=== PATIENT | female | born 1955 | race Caucasian/White ===

== ENCOUNTER 2016-05-27 05:23 | Inpatient (IN) | payer BC ==
[2016-05-27] VITALS (14 sets, daily range): BP systolic 100–136; BP diastolic 58–79
[~2016-05-27] VITALS: Ht 167.6 cm; Wt 95.3 kg
[2016-05-27] MEDS ORDERED: LOTREL 10-20 M1 EACH ORAL (06:12)
[2016-05-27] MEDS ORDERED: ceFAZolin 1gm/50ml Premix 50 ML IV ONE (07:00)
[2016-05-27] MEDS ORDERED: Bacitracin 50000 Units Vial ONE (07:11)
[2016-05-27] MEDS ORDERED: Bupivacaine w/Epi 0.25% 30ml Vial INJ ONE (07:11)
[2016-05-27] MEDS ORDERED: Surgicel 4in x 8in TOPIC ONE (07:11)
[2016-05-27] MEDS: ProvayBlue 5mg/ml 10ml amp INJ ONE ×2 (07:15→08:35)
[2016-05-27] MEDS ORDERED: Sterile Water Irrig 1000ml IRRIG ONE (07:30)
[2016-05-27] MEDS ORDERED: NS Irrig 1000ml ONE (07:30)
[2016-05-27] MEDS ORDERED: Alfentanil 2ml Inj ONE (07:30)
[2016-05-27] MEDS ORDERED: Zemuron 50mg/5ml Inj IV ONE (07:30)
[2016-05-27] MEDS ORDERED: Ketorolac 30mg Inj ONE (07:30)
[2016-05-27] MEDS ORDERED: Midazolam 2mg/2ml Inj ONE (07:30)
[2016-05-27] MEDS ORDERED: Neostigmine 1mg/ml 10ml Inj ONE (07:30)
[2016-05-27] MEDS ORDERED: Lidocaine 1% MPF 10mg/ml 5ml ONE (07:30)
[2016-05-27] MEDS ORDERED: LR 1000ml ONE (07:30)
[2016-05-27] MEDS ORDERED: Propofol 10mg/ml 20ml IV ONE (07:30)
[2016-05-27] MEDS ORDERED: Glycopyrrolate 0.2mg/ml 1ml Vial ONE (07:30)
--- NOTE | 2016-05-27 07:32 | Anethesia Preoperative Eval ---
Anesthesia Pre-op PMH/ROS General Date of Evaluation: May 27, 2016 Time of Evaluation: 07:31 Anesthesiologist: Astrid ASA Score: ASA 3 Mallampati Score Class I : Soft palate, uvula, fauces, pillars visible Class II: Soft palate, uvula, fauces visible Class III: Soft palate, base of uvula visible Class IV: Only hard plate visible Mallampati Classification: Class II Surgeon: Wenceslao Diagnosis: Abd Pain Surgical Procedure: Vaginal Sling, Cysto kristel, Rectocele Anesthesia History: none Family History: no anesthesia problems Allergies: Coded Allergies: No Known Allergies (Unverified , 05/26/16) Medications: see eMAR Past Medical History Cardiovascular: Reports: HTN, other - HL Endocrine: Reports: DM Other: obesity - BMI 33 Anesthesia Pre-op Phys. Exam Physician Exam Last Vital Signs Date Time Temp Pulse Resp B/P Pulse Ox O2 Delivery O2 Flow Rate FiO2 05/27/16 06:05 97.7 77 20 96 Room Air Constitutional: NAD Neurologic: CN 2-12 intact Cardiovascular: RRR Respiratory: CTA Gastrointestinal: S/NT/ND Airway Exam Mallampati Score: Class II MO: full ROM: limited Teeth: intact Anesthesia Pre-op A/P Risk Assessment & Plan Assessment: ASA 3 Plan: GA, Glidescope, BIS Status Change Before Surgery: No Pre-Antibiotics Dru Gram Ancef IV Given Within 1 Hr of Incision: Yes Time Given: 07:46 Sincere Resendiz MD May 27, 2016 07:32
--- NOTE | 2016-05-27 07:37 | Pre-Procedure Note/Attestation ---
Pre-Procedure Note/Attestation Complete Prior to Procedure Planned Procedure: not applicable Procedure Narrative: cystocele rectocele repair vaginal sling cystoscopy Indications for Procedure Pre-Operative Diagnosis: vaginal prolapce incontinence Attestation I attest that I discussed the nature of the procedure; its benefits; risks and complications; and alternatives (and the risks and benefits of such alternatives ), prior to the procedure, with the patient (or the patient's legal corporate representative). I attest that, if there was a reasonable possibility of needing a blood transfusion, the patient (or the patient's legal corporate representative) was given the [facility] standardized written summary, pursuant to the Jethro Lois Blood Safety Act ([place] Health and Safety Code # 1645, as amended). I attest that I re-evaluated the patient just prior to the surgery and that there has been no change in the patient's H&P, except as documented below: Fredi Billy MD May 27, 2016 07:37
--- NOTE | 2016-05-27 07:38 | Brief Operative Note ---
Immediate Post Operative Note Operative Note Pre-op Diagnosis: vaginal prolapce incontinence Procedure: cystocele rectocele repair vaginal wall sling cystoscopy Post-op Diagnosis: same Surgeon: Luigi Billy Anesthesia: general Specimen: none Complications: none Condition: stable Estimated Blood Loss: minimal Implant(s) used?: No Fredi Billy MD May 27, 2016 07:38
[2016-05-27] MEDS ORDERED: LR 1000ml 1,000 ML IVLG SCH (08:08)
--- NOTE | 2016-05-27 08:12 | Immediate Post-Op Evaluation ---
Immediate Post-Op Evalulation Immediate Post-Op Evalulation Procedure: Vaginal Sling, Cysto kristel, Rectocele Date of Evaluation: May 27, 2016 Time of Evaluation: 09:27 IV Fluids: 1300 LR Blood Products: 0 Estimated Blood Loss: 20 Urinary Output: 200 Blood Pressure Systolic: 127 Blood Pressure Diastolic: 78 Pulse Rate: 84 Respiratory Rate: 16 O2 Sat by Pulse Oximetry: 98 Temperature (Fahrenheit): 98.5 Pain Score (1-10): 3 Nausea: No Vomiting: No Complications 0 Patient Status: awake, reacts, patent, extubated, none Hydration Status: adequate Dru Gram Ancef IV Given Within 1 Hr of Incision: Yes Time Given: 07:46 Sincere Resendiz MD May 27, 2016 08:12
--- NOTE | 2016-05-27 08:13 | 48 Hour Post Anesthesia Eval ---
Post Anesthesia Evaluation Procedure: Vaginal Sling, Cysto kristel, Rectocele Date of Evaluation: May 27, 2016 Time of Evaluation: 11:41 Blood Pressure Systolic: 131 0: 78 Pulse Rate: 69 Respiratory Rate: 18 Temperature (Fahrenheit): 98.6 O2 Sat by Pulse Oximetry: 99 Airway: patent Nausea: No Vomiting: No Pain Intensity: 2 Hydration Status: adequate Cardiopulmonary Status: Stable Mental Status/LOC: patient returned to baseline Follow-up Care/Observations: 0 Post-Anesthesia Complications: 0 Follow-up care needed: N/A Sincere Resendiz MD May 27, 2016 08:13
[2016-05-27] MEDS ORDERED: Oxycodone/Acetaminophen 5-325 ORAL PRN (08:15)
[2016-05-27] MEDS ORDERED: Labetalol 5mg/ml 20ml vial IV PRN (08:15)
[2016-05-27] MEDS ORDERED: Atropine Inj 1mg/10ml Syr IV PRN (08:15)
[2016-05-27] MEDS ORDERED: Ketorolac 30mg Inj IV PRN ×2 (08:15→12:00)
[2016-05-27] MEDS ORDERED: Midazolam 2mg/2ml Inj IVP PRN (08:15)
[2016-05-27] MEDS ORDERED: Ketorolac 60mg Inj IV PRN (08:15)
[2016-05-27] MEDS ORDERED: Norco 5mg/325mg tab ORAL PRN ×2 (08:15→12:00)
[2016-05-27] MEDS ORDERED: fentaNYL 100 mcg/2 mL IV PRN (08:15)
[2016-05-27] MEDS ORDERED: Metoclopramide 10mg/2ml Inj IVP PRN (08:15)
[2016-05-27] MEDS ORDERED: Norco 7.5mg/325mg tab ORAL PRN (08:15)
[2016-05-27] MEDS ORDERED: Meperidine 25mg/ml Inj IV PRN (08:15)
[2016-05-27] MEDS ORDERED: LORazepam Inj 2mg/ml 1ml IV PRN (08:15)
[2016-05-27] MEDS ORDERED: DiphenhydrAMINE 50mg/ml Inj IVP PRN (08:15)
[2016-05-27] MEDS ORDERED: Hydromorphone 0.5mg/0.5ml inj IVP PRN (08:15)
[2016-05-27] MEDS: LR 1000ml 1,000 ML IV SCH ×2 (11:19→21:00)
[2016-05-27] MEDS ORDERED: HYDROmorphone 1mg/ml Carpuject IVP PRN (12:00)
[2016-05-27 14:34] LABS: BASOPHILS % (AUTO) 0.6 % (0.0-2.0); LYMPHOCYTES % (AUTO) 18.8 % (20.0-45.0); MEAN CORPUSCULAR HEMOGLOBIN 28.5 PG (27.0-31.0); MEAN CORPUSCULAR HGB CONC 32.4 G/DL (32.0-36.0); MEAN CORPUSCULAR VOLUME 88 FL (80-99); MEAN PLATELET VOLUME 9.1 FL (6.5-10.1); MONOCYTES % (AUTO) 6.5 % (1.0-10.0); NEUTROPHILS % (AUTO) 73.1 % (45.0-75.0); PLATELET COUNT 201 K/UL (150-450); RED BLOOD COUNT 4.45 M/UL (4.20-5.40); RED CELL DISTRIBUTION WIDTH 13.3 % (11.6-14.8); WHITE BLOOD COUNT 10.6 K/UL (4.8-10.8)
[2016-05-27 14:54] LABS: ANION GAP 13 (5-15); CALCIUM 8.7 mg/dL (8.6-10.2); CARBON DIOXIDE 26 mEQ/L (20-30); CHLORIDE 102 mEQ/L (98-107); CREATININE 0.8 mg/dL (0.5-0.9); GLOMERULAR FILTRATION RATE > 60 mL/min (>60); HEMOLYSIS 2; POTASSIUM 4.5 mEQ/L (3.4-4.9); SODIUM 141 mEQ/L (135-145)
[2016-05-27] MEDS: ceFAZolin sod 1 GM in D5W 55 ML IV SCH (16:47)
[2016-05-27] MEDS: Docusate 100mg cap ORAL SCH (18:24)
[2016-05-28] VITALS: BP 120/71
[2016-05-28] MEDS: ceFAZolin sod 1 GM in D5W 55 ML IV SCH ×2
[2016-05-28 06:00] VITALS: BP 120/70
[2016-05-28] MEDS: LR 1000ml 1,000 ML IV SCH (07:00)
[2016-05-28 07:17] LABS: BASOPHILS % (AUTO) 0.5 % (0.0-2.0); EOSINOPHILS % (AUTO) 1.1 % (0.0-3.0); LYMPHOCYTES % (AUTO) 24.2 % (20.0-45.0); MEAN CORPUSCULAR HEMOGLOBIN 28.4 PG (27.0-31.0); MEAN CORPUSCULAR HGB CONC 32.6 G/DL (32.0-36.0); MEAN CORPUSCULAR VOLUME 87 FL (80-99); MEAN PLATELET VOLUME 9.1 FL (6.5-10.1); MONOCYTES % (AUTO) 8.5 % (1.0-10.0); NEUTROPHILS % (AUTO) 65.7 % (45.0-75.0); PLATELET COUNT 189 K/UL (150-450); RED CELL DISTRIBUTION WIDTH 13.7 % (11.6-14.8); WHITE BLOOD COUNT 9.1 K/UL (4.8-10.8)
[2016-05-28 08:00] VITALS: BP 129/69
[2016-05-28] MEDS: Docusate 100mg cap ORAL SCH (08:37)
[2016-05-28] MEDS ORDERED: Acetaminophen 500mg (ES) tab ORAL PRN (09:00)
[2016-05-28 12:00] VITALS: BP 137/77
[2016-05-28] MEDS ORDERED: LR 1000ml 1,000 ML IVLG SCH (14:01)
[2016-05-28 15:57] VITALS: BP 145/77
--- NOTE | 2016-05-29 20:34 | Discharge Summary ---
Discharge Summary Hospital Course Date of Admission May 27, 2016 at 11:30 Date of Discharge May 28, 2016 at 17:56 Admitting Diagnosis cystocele rectocele CRAIG Mercado is a 61 year old female who was admitted on May 27, 2016 at 11: 30 for Cystocele,Rectocele Hospital Course [id number] Discharge Discharge Disposition Patient was discharged to Home (01) Discharge Diagnoses: Sophia Farris NP May 29, 2016 20:34
--- NOTE | 2016-05-30 02:17 | Discharge Summary 2 SIG ---
DATE OF ADMISSION: 05/27/2016 DATE OF DISCHARGE: 05/28/2016 BRIEF HOSPITAL COURSE: The patient is a 61-year-old female, who was diagnosed with vaginal prolapse with incontinence was admitted on 05/27/2016 and underwent a cystocele and rectocele repair of vaginal wall with sling cystoscopy. She tolerated the procedure well. Postoperatively, was given pain management. SCDs for DVT prophylaxis and was encouraged incentive spirometry. Following day, vaginal packing was removed. Urinary Marques catheter was discontinued. The patient was voiding and was discharged home to follow up as outpatient. FINAL DIAGNOSIS: Vaginal prolapse with incontinence status post cystocele, rectocele repair of the vaginal wall with sling cystoscopy . Fredi Billy M.D. I have been assigned to dictate discharge summary on this account and I was not involved in the patient's management. Sophia Farris N.P. DR: Maryjane JOB#: [id number] CC:
--- NOTE | 2016-06-01 22:37 | Operative Note - Dictated ---
DATE: 05/27/2016 PREOPERATIVE DIAGNOSES: Vaginal prolapse and incontinence. POSTOPERATIVE DIAGNOSES: Vaginal prolapse and incontinence. OPERATION: 1. Transvaginal cystocele repair with mesh. 2. Rectocele repair vaginal wall sling. 3. Cystoscopy colposuspension. SURGEON: Dr. Fredi Billy. ANESTHESIA: General. FINDINGS: Severe prolapse of the vagina open urethra. INDICATIONS FOR SURGERY: The patient came to me with complaints of vaginal prolapse, stress, and urge incontinence. She underwent full evaluation including urodynamic study and cystoscopy that showed grade 3 cystocele, rectocele, and severely open urethra with demonstrated positive for stress incontinence . Treatment options were explained to her. She tried conservative medications, but it did not help her. She understands the risks of the procedure. She also understands the risk of implanting the mesh material. I discussed with her risks and benefits and she agreed to the surgery and understands all potential complications, signed a consent. She was brought to the operating room, placed in lithotomy position. Prepped and draped in standard fashion under general anesthesia. A retractor was placed. Vaginal mucosa was opened anteriorly bladder from the pubis. There was lot of adhesions in the preperitoneal area. Finally released by sharp and blunt dissection. After that, the [employer] device was used to put a increase in the in the sacrospinous muscles and mesh was placed supporting the bladder well cephalad. Mid urethral sling was placed in the mid urethra and secured sling and cystocele repair was secured to the bladder to make sure that the mesh is not migrating. After that, rectocele repair was performed placing interrupted 2-0 Vicryl sutures in the perirectal muscles and reducing the posterior prolapsed. Vagina was trimmed. Cystoscopy showed ejection of indigo carmine from both ureteral orifices. The patient tolerated the procedure well. Estimated blood loss approximately 50 mL. Sponge count and instrument count was correct. The patient transferred to recovery room in stable condition. No evidence of complication. Fredi Billy M.D. DR: Rosie JOB#: [id number] CC:
== END 2016-05-28 17:56 | disposition home or self-care (01) | DRG 748 ==
LOC: SUR 05:23 → EDSEX 07:30 → 3E 11:30
PROC: 0JQC3ZZ Repair Pelvic Region Subcutaneous Tissue and Fascia, Percutaneous Approach (ICD-10-PCS; principal; 2016-05-27 07:30)
PROC: 0JUC3JZ Supplement of Pelvic Region Subcutaneous Tissue and Fascia with Synthetic Substitute, Percutaneous Approach (ICD-10-PCS; principal; 2016-05-27 07:30)
DX: N81.10 Cystocele, unspecified (principal); I10 Essential (primary) hypertension; E11.9 Type 2 diabetes mellitus without complications; E66.9 Obesity, unspecified; Z68.33 Body mass index [BMI] 33.0-33.9, adult; N81.6 Rectocele; R32 Unspecified urinary incontinence
CPT/HCPCS: 36415; 80048; 82962; 85025; 94003; 94150; J2180; J2250; J2405; J2710; J3490